=== PATIENT | female | born 1960 | race Caucasian/White ===

== ENCOUNTER → 2017-10-21 | Emergency (ER) | payer OTHER ==
[~2017-10-21] VITALS: Ht 162.6 cm; Wt 108.9 kg
[~2017-10-21] MED LIST: CLARINEX2.5 MG/TAB PO; DILTIAZEM 24HR240 MG; HYZAAR 100-251 UDTAB PO; NORVASC5 MG; PYRIDIUM100 MG PO
== END | disposition home or self-care (01) ==
LOC: ER 10:28
DX: N39.0 Urinary tract infection, site not specified (principal); M54.89 Other dorsalgia

== ENCOUNTER 2018-02-17 09:23 | Outpatient (CLI) | payer OTHER | END 2018-02-17 10:45 | disposition home or self-care (01) | LOC: NUCLEAR 09:23 | DX: M81.0 Age-related osteoporosis without current pathological fracture (principal); I87.2 Venous insufficiency (chronic) (peripheral) ==

== ENCOUNTER 2022-07-22 18:21 | Emergency (ER) | payer OTHER ==
[~2022-07-22] VITALS: Ht 162.6 cm; Wt 81.6 kg
[2022-07-22] MEDS ORDERED: GLUMETZA500 MG (19:13)
[2022-07-23] MEDS ORDERED: ONDANSETRON ODT4 MG PO (05:03)
[2022-07-23] MEDS ORDERED: PEPCID40 MG PO (05:03)
[2022-07-23] MEDS ORDERED: LEVSIN/SL0.125 MG SL (05:03)
== END 2022-07-23 05:12 ==
LOC: ER 18:21
DX: R10.11 Right upper quadrant pain (principal); Z87.442 Personal history of urinary calculi; N20.0 Calculus of kidney; K80.20 Calculus of gallbladder without cholecystitis without obstruction; K75.9 Inflammatory liver disease, unspecified

== ENCOUNTER 2022-08-28 04:40 | Day surgery (SDC) | payer OTHER ==
[~2022-08-28] VITALS: Ht 162.6 cm; Wt 81.6 kg
[~2022-08-28 04:40] MED LIST changes: +GLUMETZA500 MG; +LEVSIN/SL0.125 MG SL; +ONDANSETRON ODT4 MG PO; +PEPCID40 MG PO; +ZYRTEC10 MG PO
== END 2022-08-28 11:40 | disposition home or self-care (01) ==
LOC: CIR.AMB 04:40
PROVIDERS: ATTEND Specialist
DX: K80.10 Calculus of gallbladder with chronic cholecystitis without obstruction (principal); Z20.822 Contact with and (suspected) exposure to COVID-19; I10 Essential (primary) hypertension; F12.90 Cannabis use, unspecified, uncomplicated; E11.9 Type 2 diabetes mellitus without complications; Z79.84 Long term (current) use of oral hypoglycemic drugs

== ENCOUNTER 2024-11-04 07:10 | Outpatient (CLI) | payer OTHER | END 2024-11-04 07:15 | disposition home or self-care (01) | LOC: SONOGRAMA 07:10 | PROVIDERS: ATTEND Internal Medicine Gastroenterology | DX: K76.0 Fatty (change of) liver, not elsewhere classified (principal) ==